=== PATIENT | female | born 1955 | race Caucasian/White ===

== ENCOUNTER → 2016-11-28 | Outpatient (CLI) | payer OTHER | LOC: FIMAGING 12:55 | PROVIDERS: ATTEND Orthopaedic Surgery Orthopaedic Surgery of the Spine | DX: M41.26 Other idiopathic scoliosis, lumbar region (principal); M41.24 Other idiopathic scoliosis, thoracic region; M50.321 Other cervical disc degeneration at C4-C5 level ==

== ENCOUNTER 2016-12-03 05:54 | Inpatient (IN) | payer OTHER ==
--- NOTE | 2016-12-02 13:49 | GHP ---
[f rep st] PREOP HISTORY AND PHYSICAL DATE OF ADMISSION: 12/03/2016 HISTORY: The patient is a pleasant 61-year-old woman, who has had a couple-of- year history of chronic worsening low back pain and history of scoliosis. She also has right buttock pain radiating to the posterior thigh, but not typically below the knee. The patient states that she was diagnosed with scoliosis at the age of 38. Typically her pain is worse with forward flexion and rotation. Her symptoms are typically improved with heat. On a 1-10 scale her pain is typically a 4 to 6. She denies any loss of bowel or bladder control. She has had physical therapy, acupuncture, anti-inflammatories and a home stretching exercise regimen. More recently, the patient has developed right anterolateral pain and dysesthesias in her lower extremity. Currently 75% of her symptoms are referable to low back pain, and 25% is referable to the right lower extremity. REVIEW OF SYSTEMS: A 10-point review is negative for any pertinent positives. SOCIAL HISTORY: Negative for tobacco, and positive for social use of alcohol. FAMILY HISTORY: Diabetes mellitus, cancer, lung disease, heart disease. PAST MEDICAL HISTORY: Osteoporosis, hypothyroidism, and hypercholesterolemia. PAST SURGICAL HISTORY: Right shoulder subacromial decompression, repair of a deviated nasal septum, and cataract surgery. ALLERGIES: Erythromycin, doxepin and ragweed. MEDICATIONS: Synthroid, Fosamax, Lipitor. PHYSICAL EXAMINATION: VITAL SIGNS: Vane is 65 inches tall and weighs 141 pounds. GENERAL: She is alert and oriented x3. CARDIAC: Regular rate and rhythm without detectable murmur, rub or gallop. LUNGS: Clear to auscultation. ABDOMEN: Benign with good bowel sounds throughout. NEUROLOGIC: Shows that she has a somewhat forward flexed stance with a flat back deformity. Light touch is intact to bilateral lower extremities. Patellar and Achilles reflexes are 1/4 bilaterally. Straight leg raising is negative x2 for radiculopathy. She is tender to palpation at L4-5 and L5-S1. Her waist creases are asymmetric. Right shoulder is 1 cm elevated compared to the left. Alice line is 1 cm off to the right. Mock forward bending test shows a 2 cm right lumbar rib hump deformity and a 22 degree trunk rotation using the scoliometer. Gait is normal. She has no evidence of footdrop. RADIOGRAPHIC STUDIES: MRIs were reviewed, showing severe degenerative disk disease L2-3 and L4-5. The L5-S1 disc space is normal. She has moderate stenosis at L4-5 with severe facet arthropathy. Plain films show a 44 degree right lumbar curvature with apex at L2, and a grade 3 Bacon-Blake rotation. She has a 25 degree left thoracic curvature as well. There are no congenital malformations. IMPRESSION: 1. A 44 degree right lumbar and 25 degree left thoracic untreated adolescent idiopathic scoliosis. 2. Severe degenerative disk disease at L2-3 and L4-5 with chronic low back pain. 3. Moderate stenosis L4-5. PLAN: The patient has elected to undergo surgery for the scoliosis due to chronic worsening pain. Because she has a history of osteoporosis, she understands that she is at increased risk of instrumentation failure, breakage or pullout. She will undergo a T10-L5 posterior fusion with instrumentation, as well as an L2-L5 transforaminal lumbar interbody fusion, to try and gain correction of her curvature and a 3 column fusion of the maximum portion of her curvature. I think the thoracic component can be essentially left alone in the upper and mid region. Potential risks, benefits, possible complications have been thoroughly discussed, including, but not limited to, dural tear with cerebrospinal fluid leak, meningitis, nerve root injury, partial or complete paralysis, infection, need for further surgery, lack of improvement of symptomatology; specifically her pain, cauda equina syndrome, infection, deep venous thrombosis, pulmonary embolism, pneumonia, stroke, heart attack, hemorrhage, blindness, and . Patient's questions have been answered thoroughly. I will obtain a custom thoracolumbosacral orthosis brace postoperatively, and I would anticipate a couple of nights stay in the ICU immediately postoperatively. /[id number]/MODL MTDD
[2016-12-03] MEDS ORDERED: LR 1,000 ML IV ONE (06:03)
[2016-12-03] MEDS ORDERED: LIDOCAINE 1% 2 ML INJ ID PRN (06:03)
[2016-12-03] MEDS ORDERED: ceFAZolin 2 GM/DEXTROSE 100 ML IV ONE (06:03)
[2016-12-03] MEDS ORDERED: AVITENE POWDER 1 GM JAR TP ONE (06:48)
[2016-12-03] MEDS ORDERED: CITRATE DEXTROSE SOLN 500 ML BAG ONE ×3 (06:48→14:35)
[2016-12-03] MEDS ORDERED: BUPIVACAINE 0.25% 30 ML SDV ONE (06:48)
[2016-12-03] MEDS ORDERED: THROMBIN (BOVINE) 20,000 UNIT VIAL TP ONE (06:48)
[2016-12-03] MEDS ORDERED: BACITRACIN 50,000 UNITS/10 ML SYR IRR ONE ×3 (06:49→13:54)
[2016-12-03] MEDS ORDERED: MIDAZOLAM 2 MG/2 ML VIAL IVP ONE (07:01)
--- NOTE | 2016-12-03 07:01 | PDANEPAE ---
ANE History of Present Illness 61 year old female presents for T10-L5 Posterior fusion, scoliosis correction and TLIF. ANE Past Medical History - Cardiovascular History Hx Hypertension: No Hx Arrhythmias: No Hx Chest Pain: No Hx Coronary Artery / Peripheral Vascular Disease: No Hx CHF / Valvular Disease: No Hx Palpitations: No - Pulmonary History Hx COPD: No Hx Asthma/Reactive Airway Disease: No Hx Recent Upper Respiratory Infection: No Hx Oxygen in Use at Home: No Hx Sleep Apnea: No Sleep Apnea Screening Result - Last Documented: Negative - Neurologic History Hx Cerebrovascular Accident: No Hx Seizures: No Hx Dementia: No - Endocrine History Hx Diabetes: No Hypothyroid: Yes Hyperthyroid: No Obesity: no Endocrine History Comment: HYPOTHYROID - Renal History Hx Renal Disorders: Yes Renal History Comment: RECTAL PROLAPSE INHIBITS URINATION MAY BE GETTING. PESSARY - Liver History Hx Hepatic Disorders: No - Neurological & Psychiatric Hx Hx Neurological and Psychiatric Disorders: Yes Neurological / Psychiatric History Comment: Radiculopathy related to lumbar spine - Congenital Disorder History Hx Congenital Disorders: Yes Congenital History Comment: SCOLIOSIS - GI History Hx Gastrointestinal Disorders: No - Other Health History Other Health History: OSTEOPOROSIS WRIST. OSTEOPENIA - Chronic Pain History Chronic Pain: Yes (LOWER BACK AND SCIATICA AND DOWN RT LEG) - Surgical History Prior Surgeries: VICKY CATARACT. RT SHLDR SCOPE. TUBAL LIGATION. TONSILLECTOMY. REMVL VAGINAL CYST ANE Review of Systems Review of systems is: negative Review of Systems: - Exercise capacity Exercise capacity: >=4 METS METS (RN): 5 METS ANE Patient History - Allergies Allergies/Adverse Reactions: doxepin Allergy (Verified 11/11/16 13:34) dizzy erythromycin base [From Erythrocin] Allergy (Verified 11/11/16 13:34) Vomiting - Home Medications Home medications: home medication list seen and reviewed Home Medications: Alendronate Sodium [Fosamax 70 MG (*)] 70 mg PO MO@0700 11/11/16 [Last Taken Unknown] Aspirin [Aspirin 81mg (*)] 81 mg PO DAILY 11/11/16 [Last Taken Unknown] Atorvastatin Calcium [Lipitor 10 mg (*)] 10 mg PO DAILY 11/11/16 [Last Taken Unknown] Calcium Carbonate/Vitamin D3 [Calcium 600 + D3 Softgel] 1 each PO DAILY [Last Taken Unknown] Herbals/Supplements -Info Only 1 ea PO DAILY 11/11/16 [Last Taken Unknown] Levothyroxine [Synthroid 100 mcg (*)] 100 mcg PO DAILY06 11/11/16 [Last Taken Unknown] Light Mineral Oil/Min Oil/Pf [Retaine Mgd Eye Drops] 1 drop EACHEYE BID [Last Taken Unknown] Multivitamins [Multivitamin (*)] 1 each PO DAILY 11/11/16 [Last Taken Unknown] - NPO status NPO Status: no food or drink >8 hours NPO Since - Liquids (Date): 12/02/16 NPO Since - Liquids (Time): 20:30 NPO Since - Solids (Date): 12/02/16 NPO Since - Solids (Time): 20:30 - Anes Hx Anes Hx: post operative nausea - Smoking Hx Smoking Status: Never smoked Marijuana use: No - Alcohol Use Alcohol Use: Rarely - Family Anes Hx Family Anes Hx: neg - N/A ANE Labs/Vital Signs - Vital Signs Vital Signs: reviewed preoperatively; see RN documention for details Blood Pressure: 144/91 Heart Rate: 65 Respiratory Rate: 16 O2 Sat (%): 97 Height: 165.1 cm Weight: 62.142 kg ANE Physical Exam - Airway Neck exam: FROM Mallampati Score: Class 1 Mouth exam: normal dental/mouth exam (#6 or #7 is a cap) - Pulmonary Pulmonary: no respiratory distress - Cardiovascular Cardiovascular: regular rate and rhythym - ASA Status ASA Status: II ANE Anesthesia Plan Anesthesia Plan: general endotracheal anesthesia Lines/Monitors: arterial line Total IV Anesthesia: No
[2016-12-03] MEDS ORDERED: REMIFENTANIL HCL 1 MG VIAL ONE ×4 (07:04→14:58)
[2016-12-03] MEDS ORDERED: PROPOFOL/EMULSION 500 MG/50 ML BOTTLE IV ONE ×4 (07:04→14:58)
[2016-12-03] MEDS ORDERED: fentaNYL 100 MCG/2 ML INJ ONE ×2 (07:04→12:36)
[2016-12-03] MEDS ORDERED: PROPOFOL 200 MG/20 ML VIAL ONE (07:04)
--- NOTE | 2016-12-03 07:13 | PDHPUP ---
History & Physical Update H&P update statement: This history and physical update is based on an assessment of the patient which was completed after admission or registration (within 24 hours), but prior to the surgery/procedure. H&P update: H&P reviewed & patient examined, no change in patient's condition since H&P completed
[2016-12-03] MEDS ORDERED: LIDOCAINE 2% 5 ML SDV ONE (07:23)
[2016-12-03] MEDS ORDERED: ROCURONIUM 50 MG/5 ML VIAL ONE ×3 (07:23→08:55)
[2016-12-03] MEDS ORDERED: PHENYLEPHRINE 10 MG/ML SDV ONE ×2 (07:24→14:59)
[2016-12-03] MEDS ORDERED: SUCCINYLCHOLINE CHLORIDE*ANESTHESIA ONLY*200 MG/10 ML SYR IVP ONE (07:24)
[2016-12-03] MEDS ORDERED: DEXAMETHASONE 4 MG/ML VIAL ONE (08:49)
[2016-12-03] MEDS ORDERED: ceFAZolin 1 GM VIAL ONE ×4 (09:22→14:47)
[2016-12-03] MEDS ORDERED: SUGAMMADEX SODIUM 200 MG/2 ML VIAL IVP ONE (09:52)
[2016-12-03] MEDS ORDERED: epHEDrine SULFATE 10 MG/ML SYR ONE (10:59)
[2016-12-03] MEDS ORDERED: PHENYLEPHRINE HCL 100 MCG/ML SYR ONE ×2 (10:59)
[2016-12-03] MEDS ORDERED: ALBUMIN 25% 50 ML SOLN IV ONE (13:34)
[2016-12-03] MEDS ORDERED: ALBUMIN 5% 250 ML BOTTLE IV ONE ×2 (13:35→16:17)
[2016-12-03] MEDS ORDERED: HYDROmorphONE/DILAUDID 2 MG/ML INJ ONE (14:58)
[2016-12-03] MEDS ORDERED: ONDANSETRON 4 MG/2 ML VIAL ONE (15:32)
[2016-12-03] MEDS ORDERED: NALOXONE HCL 0.4 MG/ML INJ IVP PRN (17:28)
[2016-12-03] MEDS ORDERED: fentaNYL 100 MCG/2 ML INJ IVP PRN (17:28)
[2016-12-03] MEDS ORDERED: HYDROmorphONE/DILAUDID 1 MG/ML INJ IVP PRN ×2 (17:28→17:30)
[2016-12-03] MEDS ORDERED: LR 500 ML IV PRN (17:28)
[2016-12-03] MEDS ORDERED: ONDANSETRON 4 MG/2 ML VIAL IVP PRN (17:28)
[2016-12-03] MEDS ORDERED: MAGNESIUM HYDROXIDE 30 ML UDCUP PO PRN (17:30)
[2016-12-03] MEDS ORDERED: LACTULOSE 20 GM/30 ML UDCUP PO PRN (17:30)
[2016-12-03] MEDS ORDERED: BISACODYL 10 MG SUPP PR PRN (17:30)
[2016-12-03] MEDS ORDERED: diphenhydrAMINE 25 MG CAP PO PRN (17:30)
[2016-12-03] MEDS ORDERED: PROMETHAZINE HCL 25 MG/ML INJ IVP PRN (17:30)
--- NOTE | 2016-12-03 17:31 | POSTANESTH ---
Post Anesthetic Evaluation Cardiovascular Status: Normal, Stable, Similar to Pre-Op Cond Respiratory Status: Normal, Stable, Similar to Pre-op Cond. Level of Consciousness/Mental Status: Can Participate in Eval, Alert and Oriented Pain Control: Adequate, Prn Tx Ordered Nausea/Vomiting Control: Adequate, Prn Tx Ordered Complications Possibly Related to Anesthesia: None Noted Notes: Pain well controlled in PACU. Patient moving all extremities, following commands. Vision intact bilaterally. Patient doing very well.
[2016-12-03] MEDS ORDERED: DIAZEPAM 10 MG/2 ML SYR IVP PRN (17:44)
--- NOTE | 2016-12-03 17:51 | POSTOPPROG ---
Post Op Note Date of Operation: 12/03/16 Surgeon: Vale Whitfield Clam Treader: Simone Dorman SA Anesthesiologist: Enoc Guzman MD Anesthesia: GET(General Endotracheal) Pre-op Diagnosis: 44 degree thoracolumbar scoliosis, untreated adolescent idiopathic Post-op Diagnosis: same Indication: chronic back and leg pain Procedure: T10-L5 Post fusion, instrumentation, TLIFs L2-3-4-5 Findings: severe rigid R lumbar scoliosis Inf/Abcess present in the surg proc area at time of surgery?: No Depth: Deep Incisional (Fascial) EBL: 500 cc Complications: None. No changes in SSEPs, MEPs, nor EMGs to bilat upper and lower extremities. Drains: Barak Parry (two drains.)
[2016-12-03] MEDS: NS W/ 20 KCl/L 1,000 ML IV SCH (18:45)
[2016-12-03] MEDS: SENNOSIDES/DOCUSATE SODIUM TAB PO SCH (22:00)
[2016-12-03] MEDS: morphINE SR 30 MG TAB PO SCH (22:00)
[2016-12-03] MEDS: FAMOTIDINE 20 MG TAB PO SCH (22:00)
[2016-12-03] MEDS: ACETAMINOPHEN 500 MG TAB PO SCH ×2 (22:00→22:08)
[2016-12-03] MEDS: ceFAZolin 2 GM/DEXTROSE 100 ML IV SCH (22:03)
[2016-12-03] MEDS: DIAZEPAM 5 MG TAB PO PRN (22:08)
[2016-12-04 00:56] LABS: % IMMATURE GRANULYOCYTES 1.4 % (0.0-1.1); ABSOLUTE IMMATURE GRANULOCYTES 0.17 10^3/uL (0.00-0.10); ADD DIFF? NO; ADD MORPH? NO; ADD SCAN? NO; ATYPICAL LYMPHOCYTE FLAG 0 (0-99); FRAGMENT RBC FLAG 0 (0-99); HEMOGLOBIN 8.8 g/dL (12.6-16.3); LEFT SHIFT FLG 30 (0-99); LIPEMIA HEMOLYSIS FLAG 90 (0-99); MEAN CELL HEMOGLOBIN 32.5 pg (27.9-34.1); MEAN CELL HEMOGLOBIN CONCENTR. 33.8 g/dL (32.4-36.7); MEAN CELL VOLUME 95.9 fL (81.5-99.8); MEAN PLATELET VOLUME 9.7 fL (8.7-11.7); PLATELET CLUMPS FLAG 0 (0-99); PLATELET COUNT 134 10^3/uL (150-400); RED BLOOD CELL COUNT 2.71 10^6/uL (4.18-5.33); RED CELL DISTRIBUTION WIDTH 12.1 % (11.5-15.2)
[2016-12-04 01:07] LABS: ANION GAP 7 mEq/L (8-16); CALCIUM 7.1 mg/dL (8.5-10.4); CARBON DIOXIDE 23 mEq/l (22-31); CHLORIDE 109 mEq/L (97-110); CREATININE 0.7 mg/dL (0.6-1.0); GLOMERULAR FILTRATION RATE > 60; GLUCOSE 162 mg/dL (70-100); POTASSIUM 4.1 mEq/L (3.5-5.2); SODIUM 139 mEq/L (134-144)
[2016-12-04] MEDS ORDERED: NS BOLUS 500 ML (Wide open) IV ONE ×3 (02:00→04:00)
[2016-12-04] MEDS: DIAZEPAM 5 MG TAB PO PRN ×2 (03:03→20:16)
[2016-12-04] MEDS: oxyCODONE IR 5 MG TAB PO PRN ×3 (05:05→19:15)
[2016-12-04] MEDS: ACETAMINOPHEN 500 MG TAB PO SCH ×3 (05:05→20:16)
[2016-12-04] MEDS: ceFAZolin 2 GM/DEXTROSE 100 ML IV SCH ×3 (05:22→21:39)
[2016-12-04] MEDS: morphINE SR 30 MG TAB PO SCH ×2 (08:58→20:17)
[2016-12-04] MEDS: FAMOTIDINE 20 MG TAB PO SCH ×2 (08:58→20:17)
[2016-12-04] MEDS: SENNOSIDES/DOCUSATE SODIUM TAB PO SCH ×2 (08:59→20:16)
--- NOTE | 2016-12-04 11:29 | ASMTCMCOM ---
CM Note CM Note Notes: Patient is POD #1 posterior fusion and TLIF. [facility] will come tomorrow AM to fit patient for brace, and then PT/OT will perform assessments. Patient lives independently with . Discharge needs TBD, will await therapy recommendations. CM to follow. Date Signed: 12/04/2016 11:28 AM Electronically Signed By:Yanet Richmond RN
[2016-12-04] MEDS: LEVOTHYROXINE 100 MCG TAB PO SCH (13:01)
[2016-12-04] MEDS: ATORVASTATIN CALCIUM 10 MG TAB PO SCH (13:01)
[2016-12-04] MEDS: ONDANSETRON 4 MG/2 ML VIAL IVP PRN (14:17)
--- NOTE | 2016-12-04 16:26 | SOAPPROG ---
[facility] Progress Note Assessment/Plan: Assessment: post op day 1, s/p T10-L5 post fusion/instrumentation and L2-5 TLIFs for scoliosis. Pt's hypotension and normal H.R. due to intrathecal duramorph effects. Improving. Pain control adequate. Plan: 12/04/16 16:23 Cont clear liquid diet until pt has flatus. Cont MSContin for pain control. Use valium at night. Brace will arrive tomorrow. Nursing may sit pt up without brace today (log roll and avoid twisting). Leave jaime in until pt ambulatory. Subjective: Pt had some nausea and vomitting last night. Zofran working now. Has R anterolateral thigh numbness (new). No new leg pain, however. Objective: Vital Signs Temp Pulse Resp BP Pulse Ox 37.4 C 96 21 H 99/48 L 96 12/04/16 08:00 12/04/16 14:00 12/04/16 14:00 12/04/16 14:00 12/04/16 14:00 Laboratory Results 12/04/16 00:33 12/04/16 00:33 12/03/16 12/04/16 12/05/16 05:59 05:59 05:59 Intake Total 9052 Output Total 4435 Balance 4617 BLE motor 5/5. Hafsa's negative x 2. Decreased sensation R lateral thigh (lateral femoral cutaneous nerve). Drains functioning properly. ICD10 Worksheet Patient Problems: Problems Problem Status Onset Adolescent idiopathic scoliosis Acute Degenerative lumbar spinal stenosis Acute - ICD10 Problem Qualifiers (1) Adolescent idiopathic scoliosis (2) Degenerative lumbar spinal stenosis
[2016-12-04] MEDS: NS W/ 20 KCl/L 1,000 ML IV SCH (20:23)
--- NOTE | 2016-12-04 20:29 | GOP ---
[f rep st] OPERATIVE REPORT DATE OF OPERATION: 12/03/2016 SURGEON: Vale Reveles MD AUTOMOTIVE SERVICE CASHIER: Rudolph Dorman SA ANESTHESIA: General endotracheal intubation. ANESTHESIOLOGIST: Enoc Guzman MD. PREOPERATIVE DIAGNOSIS: 1. 44 degree right lumbar and 25 degree left thoracic untreated adolescent idiopathic scoliosis. 2. Severe degenerative disk disease L2-3, and [id number] degenerative disk disease L4-5 with c hronic low back pain. 3. Moderate lumbar spinal stenosis L4-5. POSTOPERATIVE DIAGNOSIS: 1. 44 degree right lumbar and 25 degree left thoracic untreated adolescent idiopathic scoliosis. 2. Severe degenerative disk disease L2-3, and [id number] degenerative disk disease L4-5 with c hronic low back pain. 3. Moderate lumbar spinal stenosis L4-5. PROCEDURE PERFORMED: T10-L5 posterior arthrodesis and segmental instrumentation using Spinal Element s WeDidIt classic system; transforaminal lumbar interbody fusion, L2-3, L3-4 and L4-5; placement of a utogenous bone graft and bone morphogenic protein, crushed cancellous allograft, and demineralized sanket ne matrix for arthrodesis; and placement of 0.25 mg of intrathecal Duramorph and 25 mcg of intratheca l fentanyl for postoperative pain control. FINDINGS: Significant left thoracic and right lumbar scoliosis with grade 3 rotation, mild osteoporo sis, and degenerative disk disease. ESTIMATED BLOOD LOSS: 500 cc. INDICATIONS: The patient is a pleasant 61-year-old woman referred to me by her physical therapist. Patient found out she had scoliosis in her 20s. Over the last several years, she has developed chron ic increasing low back pain despite nonoperative treatment, mainly in the form of physical therapy an d a home exercise regimen. She has also tried acupuncture but does not take narcotic pain pills. On x-ray, she was found to have a 44 degree right lumbar and 25 degree left thoracic untreated adolesce nt idiopathic scoliosis with a grade 3 rotation in the lumbar region. It also showed severe degenera tive disk disease and moderate stenosis at L4-5. The patient has elected to undergo surgery due to t he aforementioned problems. Potential risks, benefits, possible complications have been thoroughly d iscussed with the patient including, but not limited to, dural tear with CSF leak, meningitis, nerve root injury, partial or complete paralysis, infection, nonunion, junctional breakdown, breakage or pu llout of internal fixation, cauda equina syndrome, partial or complete paralysis, hematoma, DVT, PE, pneumonia, stroke, heart attack, hemorrhage, blindness, and . The patient's questions were answ ered thoroughly preoperatively but no guarantees were given in regard to her outcome. DESCRIPTION OF PROCEDURE: After obtaining both written and verbal consent from the patient, she was brought to the operating room, where she underwent a general endotracheal intubation. Claros catheter was placed. An arterial line was placed. Intraoperative neuromonitoring was set up and performed i ncluding somatosensory-evoked potentials, motor-evoked potentials, and EMGs. After intubation the pa tient was rolled to the prone position on the Barak table. All 4 extremities were padded well. Th e face and eyes were padded per the anesthesiologist. A time-out was performed for the entire operat ing room team, confirming patient's name, date of , planned surgical procedure, including levels , antibiotics given, and allergies to medications. The thoracolumbar spine was prepped and draped in the normal sterile fashion. Patient received 2 g o f IV Ancef preoperatively within 1 hour. After sterile prep and drape, a midline longitudinal incisi on from approximately T9 down to S1 was made through the skin, subcutaneous tissues, into the overlyi ng dorsal fascia. Paraspinal muscles were stripped in a subperiosteal fashion bilaterally. Self-ret aining retractors were placed. Intraoperative x-ray confirmed localization of the L4 spinous process . Further dissection was carried out to the transverse processes of all vertebrae from T10 down to L 4. A large curette was used to remove soft tissues from the lamina and the facet joints from T10 nuria n to L5. Then at this time, the intraoperative O-arm was brought in for an AP and a lateral x-ray fo llowed by CT scan spin after placing the reference frame. Then using the 3 dimensional guidance of t he O-arm, the left-sided instrumentation was 1st performed. Initially starting on the left at T10, p edicle screw sites were identified using a gear shift probe and using the basic anatomic landmarks. The screws were able to be placed at T10, T11, T12, L1, L3, L4 and L5 on the left. The L2 screw was not able to be placed safely as this only stimulated to 8 milliamps using the neuro integrity monitor ing system and when palpated with a ball-tipped probe, showed soft tissue rather than bone purchase. On the left at T10, the pedicle screw that was placed was a 5.5 x 35 mm screw and stimulated to 20 m illiamps. The left T11 screw is a 5.5 x 40 mm screw that stimulated to 19 milliamps. The left T12 s crew was 4.5 x 40 and stimulated to 15 milliamps. The left L1 stimulated to [address] L3 [address] imulated to 8 milliamps, even though it palpated good bone circumferentially around the entire length and the left L4 screw stimulated to 14 milliamps and the left L5 screw stimulated to 19 milliamps. Then, at this time, the right instrumentation was performed in a similar fashion. The right T10 thro ugh L5 screws were all placed under 3D guidance using the O-arm and all had good purchase and all sti mulated very well, with the lowest 1 being 12 milliamps at T11 and all others were also in the normal range up to 20 milliamps. All had good purchase. Then, the transforaminal lumbar interbody fusions and decompressions were performed in the following fashion. Starting on the right at L4-5, a partial laminectomy was performed on the right side at L4- 5 using a 3 mm Kerrison and a 5 mm round bur. The entire facet joint was removed. The midline theca l sac was identified and protected using a Love nerve root retractor. Also the exiting right L4 nerv e was protected with a Love nerve root retractor as well. Under loupe magnification, a 15-blade knif e was used to create an annulotomy of the disk, but this was severely degenerative and was removed vi a piecemeal using a pituitary rongeur and curved curettes. Also kaleb were utilized while protecti ng the neural structures. Ultimately, an 11 mm shaver had the best fit and therefore, a 10 x 27 x 11 mm lordosed PEEK, which is a Lucent TiBond porous coated PEEK cage that was packed with local autoge nous bone graft and demineralized bone matrix. It was then tamped into position such that it was flu sh with the posterior aspect of the vertebral bodies of L4 and L5. There were no changes in spinal c ord monitoring. Then, the same was performed on the right at L3-L4. These areas and the sides were specifically chosen to help reduce the scoliosis. A right-sided L3-4 laminectomy was performed and t he facet joint was completely removed. Trials were utilized and the best fitting was a 12 mm. There fore, a 10 x 27 x 12 mm lordosed PEEK TiBond cage was packed again with local autogenous bone graft f rom the laminectomy and demineralized bone matrix. It was tamped into position while protecting the cauda equina and the exiting right L3 nerve root. There were no changes in spinal cord monitoring an shaista Sifuentes was used to palpate the PEEK cage and it was recessed about 1-2 mm from the posterior asp ect of the vertebral bodies. Then, the left side at L2-3 was addressed. This was also purposely cho sen to try and create some reduction of the scoliosis. Again, a partial laminectomy was performed on the left at L2-3 using a combination of a 5 mm round bur and a 2 and 3 mm Kerrison. The facet joint was completely removed to gain access. The PEEK cage that was placed was a 10 x 27 x 10 mm lordosed PEEK cage, and again it was recessed anterior to the posterior vertebral body. It should be noted t hat the patient's scoliosis was quite severe with grade 3 rotation and was quite rigid without comple te reduction of the curvature itself. Then, at this time, after the 3 level transforaminal lumbar interbody fusions were performed, a 400 m m long times 5.5 mm diameter alicia by [employer] was chosen, cut to the appropriate length and contoured to fit the pedicle screw heads on the left from T10 down to L5. Three dimensional cont ouring was performed and placed into the screw heads and then locking caps were tightened into the sc rew heads. A derotation maneuver was performed to increase the patient's lumbar lordosis. Then sequ ential distraction of the concavity of the lumbar curve was performed at L2-3, L3-4 and compression w as then performed at L4-5 on the left. There were no changes during the maneuver. Then, a 2nd alicia w as chosen and contoured on the right. This had to be repeated due to bending out of plane. Therefor e another alicia was chosen, cut again to the appropriate length and contoured 3 dimensionally to fit in to the pedicle screw heads. This was then placed and using a flood control engineer, locking caps were tightened do wn into the screw heads from T10 down to L5 and using a combination of compression and distraction se gmentally, a partial reduction was performed and obtained of the scoliotic curvature. Then, an AP an d a lateral x-ray showed good position of internal fixation, and it should be mentioned that a [address] scan spin using the O-arm had been performed of all of the pedicle screws and these did no t show any breach medially or inferiorly of any neural elements. Using a counter torque wrench and a torque wrench, the locking caps were tightened to the manufacture's specifications. Then, at this time, 0.25 mg of intrathecal Duramorph and 25 mcg of intrathecal fentanyl were placed v ia a 30-gauge needle from a 1 cc syringe into the subarachnoid space. This was done for postoperativ e pain control. Then, at this time, a bone cutter was used to remove the spinous processes of T11 down to L4, and pur posely T10 and L5 were preserved. The local bone graft that was obtained was cleaned and cut up for arthrodesis. A 5 mm round bur then was used to decorticate the lamina from T10 down to L5 bilaterall y and the facet joints. At this time, a size large bone morphogenic protein that had been prepared w as packed in a posterolateral position over the transverse processes of L1 down to L5 bilaterally, in addition to crushed cancellous bone graft and demineralized bone matrix along the entire posterior g utters. This was augmented with autograft as mentioned from all of the spinous processes that had be en removed. Two lumbar PATTI drains were placed deep to the fascial layer and sewn in with a 2-0 nylon suture at the skin level. Sponge and needle count were correct. The wound was then closed using a #1 Vicryl in t he deep fascial layer followed by an 0 Vicryl and 2-0 undyed Vicryl followed by skin sage. Steril e dressing was applied. Patient was rolled to the supine position. Claros catheter was left in place . The patient was extubated in the operating room and brought to the recovery room in satisfactory c ondition. COMPLICATIONS: None. IMPLANTS: Spinal Elements Mercury Classic screws rods and [employer] TiBond PEEK cages. FLUIDS GIVEN: 4900 cc of crystalloids, 750 cc of colloid, 270 cc of Cell Saver. DRAINS: Two Barak-Parry drains. There were no permanent long-term changes in neuro monitoring including somatosensory-evoked potentia ls, motor-evoked potentials, and EMGs. POSTOPERATIVE PLAN: Close neurologic observation, close airway observation, pain control, physical t herapy, occupational therapy. The patient will also have a custom-made TLSO brace that she will wear for approximately 3 months postoperatively. /[id number]/MODL
[2016-12-05] MEDS: oxyCODONE IR 5 MG TAB PO PRN ×6 (01:29→21:57)
[2016-12-05 04:47] LABS: % IMMATURE GRANULYOCYTES 0.8 % (0.0-1.1); ABSOLUTE IMMATURE GRANULOCYTES 0.09 10^3/uL (0.00-0.10); ADD DIFF? NO; ADD MORPH? NO; ADD SCAN? NO; ATYPICAL LYMPHOCYTE FLAG 0 (0-99); FRAGMENT RBC FLAG 0 (0-99); HEMATOCRIT 24.4 % (38.0-47.0); HEMOGLOBIN 7.9 g/dL (12.6-16.3); LEFT SHIFT FLG 10 (0-99); LIPEMIA HEMOLYSIS FLAG 80 (0-99); MEAN CELL HEMOGLOBIN 32.1 pg (27.9-34.1); MEAN CELL HEMOGLOBIN CONCENTR. 32.4 g/dL (32.4-36.7); MEAN CELL VOLUME 99.2 fL (81.5-99.8); MEAN PLATELET VOLUME 10.4 fL (8.7-11.7); PLATELET CLUMPS FLAG 0 (0-99); PLATELET COUNT 108 10^3/uL (150-400); RED BLOOD CELL COUNT 2.46 10^6/uL (4.18-5.33); RED CELL DISTRIBUTION WIDTH 12.1 % (11.5-15.2)
[2016-12-05] MEDS: ACETAMINOPHEN 500 MG TAB PO SCH ×3 (05:47→21:45)
[2016-12-05] MEDS: ceFAZolin 2 GM/DEXTROSE 100 ML IV SCH ×2 (05:47→13:23)
[2016-12-05] MEDS: LEVOTHYROXINE 100 MCG TAB PO SCH (05:47)
[2016-12-05] MEDS: SENNOSIDES/DOCUSATE SODIUM TAB PO SCH ×2 (08:13→21:46)
[2016-12-05] MEDS: FAMOTIDINE 20 MG TAB PO SCH ×2 (08:14→21:46)
[2016-12-05] MEDS: morphINE SR 30 MG TAB PO SCH ×2 (08:14→21:46)
[2016-12-05] MEDS: ATORVASTATIN CALCIUM 10 MG TAB PO SCH (08:14)
[2016-12-05] MEDS: ONDANSETRON 4 MG/2 ML VIAL IVP PRN (09:30)
--- NOTE | 2016-12-05 15:33 | SOAPPROG ---
SOAP Progress Note Assessment/Plan: Assessment: post op day 1, s/p T10-L5 post fusion/instrumentation and L2-5 TLIFs for scoliosis. Pt's hypotension and normal H.R. due to intrathecal duramorph effects. Improving. Pain control adequate. Plan: 12/04/16 16:23 Cont clear liquid diet until pt has flatus. Cont MSContin for pain control. Use valium at night. Brace will arrive tomorrow. Nursing may sit pt up without brace today (log roll and avoid twisting). Leave jaime in until pt ambulatory. 12/05/16 15:29 post op day 2, s/p T10-L5 post fusion, instrumentation, L2-5 tlifs for scoliosis. Pt doing very well given the magnitude of the surgery. Plan: Cont iv abx until drains and jaime out. Cont PT and OT. Constipation: will give Reglan i.v and Milk of Mag. Pt may need Dulcolox supp tomorrow. Clarification: pt to wear TLSO brace at all times except for showers. Subjective: Pt having belching. No flatus Pain reasonably controlled. Still has R lat thigh numbness. Objective: Vital Signs Temp Pulse Resp BP Pulse Ox 36.7 C 90 14 102/63 98 12/05/16 12:00 12/05/16 12:00 12/05/16 12:00 12/05/16 12:00 12/05/16 12:00 Laboratory Results 12/05/16 04:24 12/04/16 00:33 12/04/16 12/05/16 12/06/16 05:59 05:59 05:59 Intake Total 9052 4786 Output Total 4435 2360 130 Balance 4617 2437 -130 BLE motor 5/5. Hafsa's negative x 2. Thoracolumbar wound clean and dry. No erythema. Drains functioning properly. ICD10 Worksheet Patient Problems: Problems Problem Status Onset Adolescent idiopathic scoliosis Acute Degenerative lumbar spinal stenosis Acute - ICD10 Problem Qualifiers (1) Adolescent idiopathic scoliosis (2) Degenerative lumbar spinal stenosis
[2016-12-05] MEDS: NS W/ 20 KCl/L 1,000 ML IV SCH (16:06)
[2016-12-05] MEDS: METOCLOPRAMIDE 10 MG/2 ML VIAL IVP SCH (17:57)
[2016-12-05] MEDS: POLYETHYLENE GLYCOL 3350 17 GM PKT PO PRN (21:48)
[2016-12-05] MEDS: DIAZEPAM 5 MG TAB PO PRN (21:57)
[2016-12-06] MEDS: METOCLOPRAMIDE 10 MG/2 ML VIAL IVP SCH ×4 (00:33→18:44)
[2016-12-06] MEDS: METHOCARBAMOL 750 MG TAB PO PRN ×2 (00:33→13:46)
[2016-12-06] MEDS: oxyCODONE IR 5 MG TAB PO PRN ×4 (02:17→18:44)
[2016-12-06] MEDS: DIAZEPAM 5 MG TAB PO PRN ×2 (04:40→21:27)
[2016-12-06 04:57] LABS: ABSOLUTE IMMATURE GRANULOCYTES 0.12 10^3/uL (0.00-0.10); ADD DIFF? NO; ADD MORPH? NO; ADD SCAN? NO; ATYPICAL LYMPHOCYTE FLAG 0 (0-99); FRAGMENT RBC FLAG 0 (0-99); HEMATOCRIT 23.1 % (38.0-47.0); HEMOGLOBIN 7.7 g/dL (12.6-16.3); LEFT SHIFT FLG 0 (0-99); LIPEMIA HEMOLYSIS FLAG 80 (0-99); MEAN CELL HEMOGLOBIN 32.2 pg (27.9-34.1); MEAN CELL HEMOGLOBIN CONCENTR. 33.3 g/dL (32.4-36.7); MEAN CELL VOLUME 96.7 fL (81.5-99.8); MEAN PLATELET VOLUME 9.4 fL (8.7-11.7); PLATELET CLUMPS FLAG 0 (0-99); PLATELET COUNT 128 10^3/uL (150-400); RED BLOOD CELL COUNT 2.39 10^6/uL (4.18-5.33); RED CELL DISTRIBUTION WIDTH 11.9 % (11.5-15.2)
[2016-12-06] MEDS: LEVOTHYROXINE 100 MCG TAB PO SCH (06:13)
[2016-12-06] MEDS: ACETAMINOPHEN 500 MG TAB PO SCH ×3 (06:13→21:27)
[2016-12-06] MEDS: SENNOSIDES/DOCUSATE SODIUM TAB PO SCH ×2 (09:19→21:27)
[2016-12-06] MEDS: FAMOTIDINE 20 MG TAB PO SCH ×2 (09:19→21:27)
[2016-12-06] MEDS: ATORVASTATIN CALCIUM 10 MG TAB PO SCH (09:21)
[2016-12-06] MEDS: POLYETHYLENE GLYCOL 3350 17 GM PKT PO PRN ×2 (09:22→21:28)
[2016-12-06] MEDS: morphINE SR 30 MG TAB PO SCH ×2 (09:23→21:26)
[2016-12-06] MEDS: ONDANSETRON DISINTEGRATING 4 MG TAB PO PRN (09:59)
--- NOTE | 2016-12-06 15:08 | SOAPPROG ---
SOAP Progress Note Assessment/Plan: Assessment: post op day 1, s/p T10-L5 post fusion/instrumentation and L2-5 TLIFs for scoliosis. Pt's hypotension and normal H.R. due to intrathecal duramorph effects. Improving. Pain control adequate. Plan: 12/04/16 16:23 Cont clear liquid diet until pt has flatus. Cont MSContin for pain control. Use valium at night. Brace will arrive tomorrow. Nursing may sit pt up without brace today (log roll and avoid twisting). Leave jaime in until pt ambulatory. 12/05/16 15:29 post op day 2, s/p T10-L5 post fusion, instrumentation, L2-5 tlifs for scoliosis. Pt doing very well given the magnitude of the surgery. Plan: Cont iv abx until drains and jaime out. Cont PT and OT. Constipation: will give Reglan i.v and Milk of Mag. Pt may need Dulcolox supp tomorrow. Clarification: pt to wear TLSO brace at all times except for showers. 12/06/16 15:05 post op day 3, s/p T10-L5 post fusion, instrumentation and L2-5 tlif for scoliosis. Pt improving nicely. Plan: Dulcolox suppository for no bowel movement. Cut back on po narcotics due to mild oversedation. Cont PT and OT. OT to assist with shower tomorrow. Anticipate discharge to home on Friday. Subjective: Pt states numbness in R lat thigh improved. No bowel movement. Objective: Vital Signs Temp Pulse Resp BP Pulse Ox 36.8 C 108 H 16 127/68 H 92 12/06/16 11:18 12/06/16 11:18 12/06/16 11:18 12/06/16 11:18 12/06/16 11:18 Laboratory Results 12/06/16 04:45 12/04/16 00:33 12/05/16 12/06/16 12/07/16 05:59 05:59 05:59 Intake Total 4797 350 Output Total 8670 1133 830 Balance 2437 -1403 -830 BLE motor 5/5. Hafsa's negative x 2. Thoracolumbar wound clean and dry. Drains (2) removed without difficulty. ICD10 Worksheet Patient Problems: Problems Problem Status Onset Adolescent idiopathic scoliosis Acute Degenerative lumbar spinal stenosis Acute - ICD10 Problem Qualifiers (1) Adolescent idiopathic scoliosis (2) Degenerative lumbar spinal stenosis
--- NOTE | 2016-12-06 15:32 | ASMTCMCOM ---
CM Note CM Note Notes: Pt has [facility], a [facility] health care sharing ministry. PT/OT rec home. Pt will need HHC RN. Finding a HHC has proven challenging w this insurance and the [place] location, pt and husb report Patricia lopes [facility] [phone] F:[phone] has authorized [facility] [phone]. TC to [facility] who do not have any information on pt, referral sent for their review. [facility] reports [facility] may have said [facility] is authorized but it is not the case. TC to Patricia who is not back in the office until Saturday 12/09. This CM will wait to hear from [facility]. Also pending are referrals to [facility] [phone] and [facility] [phone] who are listed as in network on the [facility] website [email or web address]. [facility], [facility], [facility], [facility], [facility], [facility], [facility] and [facility] have declined pt (see Allscripts). CM to follow. Date Signed: 12/06/2016 03:31 PM Electronically Signed By:NAINA Knox
--- NOTE | 2016-12-06 15:46 | ASMTCMCOM ---
CM Note CM Note Notes: Elizabeth lopes [facility] declines pt because they are not in network w [facility]. Lyssa lopes [facility] is running pt to see if TS can accept or find out who will accept. Date Signed: 12/06/2016 03:46 PM Electronically Signed By:NAINA Knox
[2016-12-07] MEDS: METHOCARBAMOL 750 MG TAB PO PRN ×2 (01:15→10:10)
[2016-12-07] MEDS: METOCLOPRAMIDE 10 MG/2 ML VIAL IVP SCH ×3 (01:16→12:33)
[2016-12-07] MEDS: oxyCODONE IR 5 MG TAB PO PRN ×3 (01:16→10:10)
[2016-12-07] MEDS: LEVOTHYROXINE 100 MCG TAB PO SCH (05:22)
[2016-12-07] MEDS: ACETAMINOPHEN 500 MG TAB PO SCH ×3 (05:22→21:28)
[2016-12-07] MEDS: DIAZEPAM 5 MG TAB PO PRN ×3 (05:22→23:31)
[2016-12-07] MEDS: FAMOTIDINE 20 MG TAB PO SCH ×2 (08:11→21:19)
[2016-12-07] MEDS: ATORVASTATIN CALCIUM 10 MG TAB PO SCH (08:11)
[2016-12-07] MEDS: SENNOSIDES/DOCUSATE SODIUM TAB PO SCH ×2 (08:11→21:18)
[2016-12-07] MEDS: morphINE SR 30 MG TAB PO SCH ×2 (08:12→21:19)
[2016-12-07] MEDS ORDERED: oxyCODONE IR 5 MG TAB PO PRN (13:11)
[2016-12-07] MEDS ORDERED: PROMETHAZINE HCL 25 MG/ML INJ IVP PRN (13:11)
[2016-12-07] MEDS ORDERED: SODIUM CL NASAL 45 ML BTL EACHNARE PRN (13:13)
--- NOTE | 2016-12-07 13:19 | SOAPPROG ---
SOAP Progress Note Assessment/Plan: Assessment: post op day 1, s/p T10-L5 post fusion/instrumentation and L2-5 TLIFs for scoliosis. Pt's hypotension and normal H.R. due to intrathecal duramorph effects. Improving. Pain control adequate. Plan: 12/04/16 16:23 Cont clear liquid diet until pt has flatus. Cont MSContin for pain control. Use valium at night. Brace will arrive tomorrow. Nursing may sit pt up without brace today (log roll and avoid twisting). Leave jaime in until pt ambulatory. 12/05/16 15:29 post op day 2, s/p T10-L5 post fusion, instrumentation, L2-5 tlifs for scoliosis. Pt doing very well given the magnitude of the surgery. Plan: Cont iv abx until drains and jaime out. Cont PT and OT. Constipation: will give Reglan i.v and Milk of Mag. Pt may need Dulcolox supp tomorrow. Clarification: pt to wear TLSO brace at all times except for showers. 12/06/16 15:05 post op day 3, s/p T10-L5 post fusion, instrumentation and L2-5 tlif for scoliosis. Pt improving nicely. Plan: Dulcolox suppository for no bowel movement. Cut back on po narcotics due to mild oversedation. Cont PT and OT. OT to assist with shower tomorrow. Anticipate discharge to home on Friday. 12/07/16 13:15 post op day 4, s/p T10-L5 post fusion, instrum, tlif L2-5. Pt is slightly oversedated and nauseated each time she takes oxycodone. Will change to [place] for prn pain. NS spray for dry nose. Bacitracin ointment for facial abrasion/scab. Cont PT and OT. Possible discharge to home tomorrow. Subjective: Pt complains of not being able to stay awake. Also complains of nausea with taking prn pain meds. Had BM last night. Objective: Vital Signs Temp Pulse Resp BP Pulse Ox 36.5 C 101 H 14 124/64 H 97 12/07/16 08:25 12/07/16 08:25 12/07/16 08:25 12/07/16 08:25 12/07/16 08:25 Laboratory Results 12/06/16 04:45 12/04/16 00:33 12/06/16 12/07/16 12/08/16 05:59 05:59 05:59 Intake Total 350 1350 200 Output Total 1753 830 500 Balance -1403 520 -300 BLE Motor 5/5. Numbness R lateral thigh almost fully resolved. Hafsa's negative. A and O x 3. However, she falls asleep talking to me. ICD10 Worksheet Patient Problems: Problems Problem Status Onset Adolescent idiopathic scoliosis Acute Degenerative lumbar spinal stenosis Acute - ICD10 Problem Qualifiers (1) Adolescent idiopathic scoliosis (2) Degenerative lumbar spinal stenosis
[2016-12-07] MEDS: HYDROCODONE/APAP 5/325 TAB PO PRN ×2 (15:22→21:20)
[2016-12-07] MEDS: ONDANSETRON DISINTEGRATING 4 MG TAB PO PRN ×2 (15:22→21:17)
[2016-12-07] MEDS: BACITRACIN ZINC 14.2 GM OINTTUBE TP SCH ×2 (15:23→21:28)
[2016-12-07] MEDS ORDERED: OXYMETAZOLINE 30 ML NASAL SPRAY EACHNARE PRN (15:39)
[2016-12-07] MEDS: METOCLOPRAMIDE 10 MG TAB PO SCH ×2 (17:33→23:30)
[2016-12-08] MEDS: HYDROCODONE/APAP 5/325 TAB PO PRN ×3 (04:21→15:21)
[2016-12-08] MEDS: ONDANSETRON DISINTEGRATING 4 MG TAB PO PRN ×3 (04:23→15:22)
[2016-12-08] MEDS: DIAZEPAM 5 MG TAB PO PRN (06:21)
[2016-12-08] MEDS: ACETAMINOPHEN 500 MG TAB PO SCH ×2 (06:22→15:12)
[2016-12-08] MEDS: LEVOTHYROXINE 100 MCG TAB PO SCH (06:22)
[2016-12-08] MEDS: METOCLOPRAMIDE 10 MG TAB PO SCH ×2 (06:22→13:07)
[2016-12-08 08:19] VITALS: BP 134/89; PULSE 95; RESP 16; TEMP 98.4; O2SAT 98
[2016-12-08] MEDS: morphINE SR 30 MG TAB PO SCH (08:54)
[2016-12-08] MEDS: FAMOTIDINE 20 MG TAB PO SCH (08:55)
[2016-12-08] MEDS: ATORVASTATIN CALCIUM 10 MG TAB PO SCH (08:55)
[2016-12-08] MEDS: POLYETHYLENE GLYCOL 3350 17 GM PKT PO PRN (08:55)
[2016-12-08] MEDS: SENNOSIDES/DOCUSATE SODIUM TAB PO SCH (08:55)
[2016-12-08] MEDS: BACITRACIN ZINC 14.2 GM OINTTUBE TP SCH (09:05)
--- NOTE | 2016-12-08 14:36 | ASMTCMCOM ---
CM Note CM Note Notes: Chart reviewed. Patient drain removed. Multiple problems with discharge r/t insurance. See previous notes. Pt provided us with following information that she had spoke with Patricia [phone] care reference number is [id number]. Referral resent to [facility] as they have been authorized to do home care. Unable to verify awaiting return [facility]. Patient insurance card copied and placed in chart. CM to follow. Date Signed: 12/08/2016 02:35 PM Electronically Signed By:Patito Brooks RN
--- NOTE | 2016-12-08 14:40 | ASMTCMCOM ---
CM Note CM Note Notes: Addendum to previous note. Error in staement of drain placement. Per PT/OT pt has no needs. CM to follow Date Signed: 12/08/2016 02:40 PM Electronically Signed By:Patito Brooks RN
--- NOTE | 2016-12-08 16:26 | SOAPPROG ---
SOAP Progress Note Assessment/Plan: Assessment: post op day 1, s/p T10-L5 post fusion/instrumentation and L2-5 TLIFs for scoliosis. Pt's hypotension and normal H.R. due to intrathecal duramorph effects. Improving. Pain control adequate. Plan: 12/04/16 16:23 Cont clear liquid diet until pt has flatus. Cont MSContin for pain control. Use valium at night. Brace will arrive tomorrow. Nursing may sit pt up without brace today (log roll and avoid twisting). Leave jaime in until pt ambulatory. 12/05/16 15:29 post op day 2, s/p T10-L5 post fusion, instrumentation, L2-5 tlifs for scoliosis. Pt doing very well given the magnitude of the surgery. Plan: Cont iv abx until drains and jaime out. Cont PT and OT. Constipation: will give Reglan i.v and Milk of Mag. Pt may need Dulcolox supp tomorrow. Clarification: pt to wear TLSO brace at all times except for showers. 12/06/16 15:05 post op day 3, s/p T10-L5 post fusion, instrumentation and L2-5 tlif for scoliosis. Pt improving nicely. Plan: Dulcolox suppository for no bowel movement. Cut back on po narcotics due to mild oversedation. Cont PT and OT. OT to assist with shower tomorrow. Anticipate discharge to home on Friday. 12/07/16 13:15 post op day 4, s/p T10-L5 post fusion, instrum, tlif L2-5. Pt is slightly oversedated and nauseated each time she takes oxycodone. Will change to [place] for prn pain. NS spray for dry nose. Bacitracin ointment for facial abrasion/scab. Cont PT and OT. Possible discharge to home tomorrow. 12/08/16 16:24 Post op day 5 s/p T10-L5 post fusion and instrumentation with L2-5 tlifs. Pt doing well and ready for discharge. Subjective: Pt states she's feeling stronger and wants to go home. Objective: Vital Signs Temp Pulse Resp BP Pulse Ox 36.9 C 95 16 134/89 H 98 12/08/16 08:14 12/08/16 08:14 10/15/17 08:14 12/08/16 08:14 12/08/16 08:14 Laboratory Results 12/06/16 04:45 12/04/16 00:33 12/07/16 12/08/16 12/09/16 05:59 05:59 05:59 Intake Total 1350 850 Output Total 830 500 Balance 520 350 Thoracolumbar wound with mild to mod serous drainage. No erythema. No purulence. BLE motor 5/5 ICD10 Worksheet Patient Problems: Problems Problem Status Onset Adolescent idiopathic scoliosis Acute Degenerative lumbar spinal stenosis Acute - ICD10 Problem Qualifiers (1) Adolescent idiopathic scoliosis (2) Degenerative lumbar spinal stenosis
[2016-12-08] MEDS ORDERED: DIAZEPAM 5 MG TAB PO PRN (16:27)
--- NOTE | 2016-12-08 16:42 | PDIAF ---
- Diagnosis Diagnosis: s/p T10-L5 post fusion, instrumentation, and L2-5 tlif Code Status: Full Code - Medication Management Discharge Medications: Medications to Continue on Transfer Alendronate Sodium [Fosamax 70 MG (*)] 70 mg PO MO@0700 11/11/16 [Last Taken Unknown] Atorvastatin Calcium [Lipitor 10 mg (*)] 10 mg PO DAILY 11/11/16 [Last Taken Unknown] Calcium Carbonate/Vitamin D3 [Calcium 600 + Vit D 400 Softgl] 1 each PO DAILY [Last Taken Unknown] Levothyroxine [Synthroid 100 mcg (*)] 100 mcg PO DAILY06 11/11/16 [Last Taken Unknown] Alendronate Sodium [Fosamax 70 MG (*)] 70 mg PO MO@0700 tab 12/08/16 [Last Taken Unknown] Atorvastatin Calcium [Lipitor 10 mg (*)] 10 mg PO DAILY tab 12/08/16 [Last Taken Unknown] Bacitracin Zinc [Bacitracin Ointment Tube] 1 douglas TP TID oint 12/08/16 [Last Taken Unknown] Cephalexin [Keflex (*)] 500 mg PO Q6HRS #12 cap 12/08/16 [Last Taken Unknown] Diazepam [Valium 5 MG (*)] 5 mg PO Q8 PRN #30 tab 12/08/16 [Last Taken Unknown] Hydrocodone/APAP 5/325 [[place] 5/325 (*)] 1 tab PO Q4HRS PRN #40 tab 12/08/16 [ Last Taken Unknown] Levothyroxine [Synthroid 100 mcg (*)] 100 mcg PO DAILY06 tab 12/08/16 [Last Taken Unknown] Ondansetron Odt [Zofran Odt 4 mg (*)] 4 mg PO Q6HRS PRN #30 tab 12/08/16 [Last Taken Unknown] morphINE SR [MS Contin/Oramorph SR 30 mg (*)] 30 mg PO BID #15 tab 12/08/16 [ Last Taken Unknown] Discharge Medications: Refer to the Discharge Home Medication list for PRN reason. PICC Care - Routine: N/A - Orders Services needed: Home Care, Registered Nurse, Physical Therapy Home Care Face to Face: I certify that this patient was under my care and that I had the required [id number] encounter meeting the encounter requirements on the discharge day. My findings support the fact that the patient is homebound as defined in Home Care Face to Face Continued: CMS Chapter 7 Medicare Benefits Manual 30.1.1 , The condition of the patient is such that there exists a normal inability to leave home and consequently, leaving home would require a considerable and taxing effort. Diet Recommendation: no restrictions on diet Diet Texture: Regular Texture Diet Clar[place]: Not applicable Khoa Stockings Discontinue Date: Nov Wound Care Instructions: Daily dry dressing change to thoracolumbar posterior wound. NO ointment. Activity/Weight Bearing Restrictions: Walk with walker Additional: NO nsaids. - Follow Up Care Current Providers and Referrals: ELYSE VALLES [Other]
--- NOTE | 2016-12-08 16:58 | ASMTCMCOM ---
CM Note CM Note Notes: Clarification of home health made through insurance see prior note for case number. Final orders faxed to both insurance and HHC. Patient understands that this has been addressed. Medically cleared for dc and needs HHC of pt and RN. CM to follow. Date Signed: 12/08/2016 04:58 PM Electronically Signed By:Patito Brooks RN
[2016-12-08] MEDS ORDERED: CEPHALEXIN 500 MG CAP PO SCH (18:00)
--- NOTE | 2016-12-09 04:41 | GDS ---
[f rep st] DISCHARGE SUMMARY HOSPITAL COURSE: The patient is a pleasant 61-year-old woman, who has had a history of untreated ado lescent idiopathic scoliosis since her 20s. She has developed some chronic low back pain, as well as leg pain. She has tried numerous nonoperative treatments, including physical therapy, home exercise program, and antiinflammatories, as well as acupuncture. Patient's curvature was 44 degree right megha mbar curve and 25 degree left thoracic with a grade 3 rotation. She ultimately elected to undergo kay rgery. On 12/03/2016, she was admitted to the hospital. Under a general anesthetic, she underwent a T10-L5 posterior fusion with instrumentation, as well as a transforaminal lumbar interbody fusion at L2-3 on the left and L3-4 and L4-5 on the right. Intraoperative neuromonitoring remained unchanged. The cu rve was found to be quite stiff, but some good reduction was able to be obtained. Two drains were pl aced. Duramorph and intrathecal fentanyl were also placed at the time of surgery. Postoperatively, the patient was kept in the intensive care unit for 2 days for close neuro monitorin g. She did have hypotension and normal heart rate due to the Duramorph giving her good pain relief. She responded initially to fluid boluses, but then would return to relative hypotension. The patien t did exceedingly well. She was seen in physical therapy and occupational therapy and became indepen dent in ambulation. She had IV Ancef given to her until the drains were removed, which were removed without difficulty. Neurologically, the patient had some tingling and numbness over the right latera l thigh postoperatively, which ultimately resolved. Furthermore, the patient developed nausea and some vomiting, but Zofran gave her good relief. Pain control was good with MS Contin 30 mg 1 p.o. b.i.d., as well as [place] 1 p.o. q.4 hours p.r.n. pa in. Her wound was clean, dry, and intact, and showed some mild serous drainage but no erythema or purulen ce and did not show any sign of infection. She had a custom TLSO brace that was made, and she is angel rning to play set herself. Overall, the patient did exceedingly well from such a large magnitude of a surgery. Pain is controll ed. Patient is having bowel movements now; she is tolerating a regular diet. She is being discharge d home in satisfactory condition. She and her are told to call my office immediately or go t o the nearest emergency room if she were to be concerned about any potential complications and to yran l my office immediately if they are concerned about infection. Otherwise, she was given prescription s for her MS Contin, [place], Keflex, Zofran, and Valium. /[id number]/MODL
[2016-12-09] MEDS ORDERED: ALENDRONATE SODIUM 70 MG TAB PO SCH (07:00)
== END 2016-12-08 16:58 | disposition home health service (06) | DRG 455 ==
LOC: F3N 05:54 → F2N 18:25 → F3N 12-05 10:25
PROVIDERS: ADMIT Orthopaedic Surgery Orthopaedic Surgery of the Spine; ATTEND Orthopaedic Surgery Orthopaedic Surgery of the Spine
PROC: 0QH004Z Insertion of Internal Fixation Device into Lumbar Vertebra, Open Approach (ICD-10-PCS; principal; 2016-12-03 07:15)
PROC: 0SG1071 Fusion of 2 or more Lumbar Vertebral Joints with Autologous Tissue Substitute, Posterior Approach, Posterior Column, Open Approach (ICD-10-PCS; principal; 2016-12-03 07:15)
PROC: 0PH404Z Insertion of Internal Fixation Device into Thoracic Vertebra, Open Approach (ICD-10-PCS; principal; 2016-12-03 07:15)
PROC: 3E0R3BZ Introduction of Anesthetic Agent into Spinal Canal, Percutaneous Approach (ICD-10-PCS; principal; 2016-12-03 07:15)
PROC: 0SG10AJ Fusion of 2 or more Lumbar Vertebral Joints with Interbody Fusion Device, Posterior Approach, Anterior Column, Open Approach (ICD-10-PCS; principal; 2016-12-03 07:15)
PROC: 0SB20ZZ Excision of Lumbar Vertebral Disc, Open Approach (ICD-10-PCS; principal; 2016-12-03 07:15)
DX: M41.126 Adolescent idiopathic scoliosis, lumbar region (principal); M41.124 Adolescent idiopathic scoliosis, thoracic region; M51.36 Other intervertebral disc degeneration, lumbar region; M48.061 Spinal stenosis, lumbar region without neurogenic claudication; M54.5 Low back pain; T40.2X5A Adverse effect of other opioids, initial encounter; I95.2 Hypotension due to drugs; M81.0 Age-related osteoporosis without current pathological fracture; E03.9 Hypothyroidism, unspecified; E78.5 Hyperlipidemia, unspecified
CPT/HCPCS: 86870-90; 97116-GP; 97161-GP; 97165-GO; 97530-GO; 97530-GP; 97535-GO; C1713; C1762; J0330; J0690; J1100; J1170; J2250; J2370; J2405; J2550; J2704; J2765; J3010; J7060; P9041; P9047

== ENCOUNTER → 2017-01-06 | Outpatient (CLI) | payer OTHER | LOC: FIMAGING 11:02 | PROVIDERS: ATTEND Orthopaedic Surgery Orthopaedic Surgery of the Spine | DX: M41.25 Other idiopathic scoliosis, thoracolumbar region (principal); Z98.890 Other specified postprocedural states ==

== ENCOUNTER → 2017-02-11 | Outpatient (CLI) | payer OTHER | LOC: FIMAGING 13:40 | PROVIDERS: ATTEND Orthopaedic Surgery Orthopaedic Surgery of the Spine | DX: M41.86 Other forms of scoliosis, lumbar region (principal); M41.84 Other forms of scoliosis, thoracic region ==

== ENCOUNTER → 2017-04-29 | Outpatient (CLI) | payer OTHER | LOC: FIMAGING 13:44 | PROVIDERS: ATTEND Orthopaedic Surgery Orthopaedic Surgery of the Spine | DX: Z98.1 Arthrodesis status (principal) ==

== ENCOUNTER → 2017-09-03 | Outpatient (CLI) | payer OTHER | LOC: FIMAGING 10:56 | PROVIDERS: ATTEND Physical Medicine & Rehabilitation Neuromuscular Medicine | DX: Z98.1 Arthrodesis status (principal) ==

== ENCOUNTER → 2017-11-24 | Outpatient (CLI) | payer OTHER | LOC: FIMAGING 10:20 | PROVIDERS: ATTEND Physical Medicine & Rehabilitation Neuromuscular Medicine | DX: Z47.89 Encounter for other orthopedic aftercare (principal); Z98.1 Arthrodesis status ==